=== PATIENT | female | born 1995 | race Caucasian/White ===

== ENCOUNTER 2019-06-22 02:52 | Emergency (ER) | payer BC, OTHER ==
[~2019-06-22] VITALS: Ht 154 cm; Wt 53.7 kg
--- OUTSIDE RECORDS SUMMARY | 2019-06-22 03:14 | XMS REPORT ---
Author Author Laury Buckley Doctor Organization [facility] Address Unknown Phone Unavailable Care Team Providers Care Aerospace Technician Name Role Phone Migration, Doctor Unavailable Unavailable PROBLEMS Type Condition ICD9-CM Code XCB79-QC Code Onset Dates Condition S tatus SNOMED Code Problem Opioid abuse F11.10 Active 0122342 Problem Anxiety F41.9 Active 02207645 Problem Arthritis M19.90 Active 8189340 ALLERGIES No Information ENCOUNTERS Encounter Location Date Diagnosis [address] [place] [address] Apr, [address] [place] [address] Mar, [address] [place] [address] Mar, Encounter for supervision of normal first , second trimester Z34.02 [address] [place] [address] 14 Mar, 2019 Encounter for supervision of normal first , second trimester Z34.[address] [place] [address] Feb, Encounter for supervision of normal first in first trimester Z34.[address] [place] [address] Jan, Encounter for supervision of normal first , first trimester Z34.[address] [place] [address] Jan, [address] [place] [address] Dec, Encounter for supervision of normal first in first trimester Z34.01 [facility] [address] [place] [address] Nov, Encounter for immunization Z [address] [place] [address] Apr, Encounter for Depo-Provera c ontraception Z30.42 [place] [address] [place] [id number] [place] [address] Apr, [place] [address] [address] Mar, Anxiety F41.9 and Opioid abuse F11.10 [place] [address] [address] Apr, [address] [address] Apr, Arthritis M19.90 and Other fatigue R53.[address] [address] 08 Mar, 2017 Mid-back pain, acute M54.9 [place] [address] [address] 07 Mar, 2017 Mid-back pain, acute M54.9 Mary KateKING [address] [place] [address] Aug, 15 Strain of muscle, fascia and tendon of lower back, initial encounter 846.9 and [facility] [address] [place] [address] Jul, 15 Strain of muscle, fascia and tendon of lower back, initial encounter 846.9 [place] [address] [address] June, [address] [address] June, [place] [address] [address] Jul, IMMUNIZATIONS No Known Immunizations SOCIAL HISTORY Never Assessed REASON FOR VISIT PLAN OF CARE VITAL SIGNS Height 61 in 2013-07-04 Weight 96 lbs 2013-07-04 Temperature 97.5 degrees Fahrenheit 2013-07-04 Heart Rate 72 bpm 2013-07-04 Respiratory Rate 16 2013-07-04 Blood pressure systolic 107 mmHg 2013-07-04 Blood pressure diastolic 60 mmHg 2013-07-04 MEDICATIONS Unknown Medications RESULTS No Results PROCEDURES Procedure Date Ordered Result Body Site VISUAL ACUITY SCREEN July 04, 2013 INSTRUCTIONS MEDICATIONS ADMINISTERED No Known Medications MEDICAL (GENERAL) HISTORY Type Description Date Medical History Other general medical examination for ad ministrative purposes Medical History Strain of muscle, fascia and tendon of lower back, initial encounter Surgical History No Surgical history information
--- OUTSIDE RECORDS SUMMARY | 2019-06-22 03:14 | XMS REPORT ---
Author Author Laury BOYCE Organization [facility] Address [address] [place] [address] Care Team Providers Care Prototype Fabricator Name Role Phone AUSTENGEORGETAMICA Unavailable PROBLEMS Type Condition ICD9-CM Code [id number] Code Onset Dates Condition S tatus SNOMED Code Problem Arthritis M19.90 Active 4344777 ALLERGIES No Information ENCOUNTERS Encounter Location Date Diagnosis [place] [address] [facility] [id number] [address] [place] [address] Apr, [place] [address] [place] [id number] [address] [place] [address] Apr, Arthritis M19.90 and Other f atigue R53.83 [place] [address] [facility] [id number] [address] [place] [address] Mar, Mid-back pain, acute M54.9 [place] [address] [facility] [id number] [address] [place] [address] Mar, Mid-back pain, acute M54.9 [facility] [address] [facility] [address] [id number] [place], [place] [phone] Aug, Strain of muscle, fascia and tendon of lower back, initial encounter 846.9 and Encounter related to worker's compensation claim V70.3 [facility] [address] [facility] [address] [id number] [place], [place] [id number] 30 Jul, 2014 Strain of muscle, fascia and tendon of lower back, initial encounter 846.9 [place] [address] [facility] [id number] [address] [place] [address] June, [place] [address] [facility] [id number] [address] [place] [address] June, [facility] [address] [facility] [id number] [address] [place] [address] Jul, IMMUNIZATIONS No Known Immunizations SOCIAL HISTORY Never Assessed REASON FOR VISIT Requests return call PLAN OF CARE VITAL SIGNS MEDICATIONS Medication Instructions Dosage Frequency Start Date End Date Duration S sebastian Tizanidine HCl 4 MG Orally Three times a day 1 tablet as needed 8h 10 days Active RESULTS No Results PROCEDURES No Known procedures INSTRUCTIONS MEDICATIONS ADMINISTERED No Known Medications MEDICAL (GENERAL) HISTORY Type Description Date Medical History Other general medical examination for ad ministrative purposes Medical History Strain of muscle, fascia and tendon of lower back, initial encounter
--- OUTSIDE RECORDS SUMMARY | 2019-06-22 03:14 | XMS REPORT ---
Author Author Laury BOYCE Organization [facility] [place] Address [address] [place] [address] Care Team Providers Care Foot Miter Operator Name Role Phone AUSTENGEORGETAMICA Unavailable PROBLEMS Type Condition ICD9-CM Code KUR87-CU Code Onset Dates Condition S tatus SNOMED Code Problem Arthritis M19.90 Active 1292424 ALLERGIES No Known Allergies ENCOUNTERS Encounter Location Date Diagnosis [place] [address] [facility] [id number] [address] [place] [address] Apr, [place] [address] [place] [id number] [address] [place] [address] Apr, Arthritis M19.90 and Other f atigue R53.83 [place] [address] [facility] [id number] [address] [place] [address] Mar, Mid-back pain, acute M54.9 [place] [address] [facility] [id number] [address] [place] [address] Mar, Mid-back pain, acute M54.9 [facility] [address] [facility] [address] [id number] [place], [place] [address] Aug, Strain of muscle, fascia and tendon of lower back, initial encounter 846.9 and Encounter related to worker's compensation claim V70.3 [facility] IOL [address] [facility] [address] [id number] [place], [place] [address] Jul, Strain of muscle, fascia and tendon of lower back, initial encounter 846.9 [place] [address] [facility] [id number] [address] [place] [address] June, [place] [address] [facility] [id number] [address] [place] [address] June, [facility] [place] [address] [facility] [id number] [address] [place] [address] Jul, IMMUNIZATIONS No Known Immunizations SOCIAL HISTORY Never Assessed REASON FOR VISIT Pain (acute)back, Mid back pain that started a couple months ago. States it is getting increasingly worse. Describes it as a stabbing pain that radiates down to lower back. Has tried all otc remedies. Has tried getting a massage which he lped temporarily. Also went toa chiropractor who said it was not bone relatedSergio Galindo,RN PLAN OF CARE Activity Details Follow Up prn Reason: VITAL SIGNS Height 61 in 2017-04-06 Weight 98 lbs 2017-04-06 Temperature 98.9 degrees Fahrenheit 2017-04-06 Heart Rate 88 bpm 2017-04-06 Respiratory Rate 16 2017-04-06 BMI 18.51 kg/m2 2017-04-06 Blood pressure systolic 110 mmHg 2017-04-06 Blood pressure diastolic 61 mmHg 2017-04-06 MEDICATIONS Medication Instructions Dosage Frequency Start Date End Date Duration S tatus Naproxen 500 MG Orally every 12 hrs 1 tablet as needed 12h 30 Jul, 2 015 Not-Taking Cyclobenzaprine HCl 10 mg Orally Three times a day 1 tablet as needed for back pain/muscle spasm 8h Mar, Apr, 30 day(s) Active Topiramate 50 MG Orally Once a day 1 tablet 24h Not-Taking Zolpidem Tartrate 5 MG Orally Once a day 1 tablet at bedtime 24h Not-Taking RESULTS No Results PROCEDURES No Known procedures INSTRUCTIONS MEDICATIONS ADMINISTERED No Known Medications MEDICAL (GENERAL) HISTORY Type Description Date Medical History Other general medical examination for ad ministrative purposes Medical History Strain of muscle, fascia and tendon of lower back, initial encounter
--- OUTSIDE RECORDS SUMMARY | 2019-06-22 03:14 | XMS REPORT ---
Author Author Laury MAYORGA Organization [facility] Address [address] [place] [address] Care Team Providers Care Raveler Name Role Phone NEIDA MAYORGA Unavailable PROBLEMS Type Condition ICD9-CM Code GLD50-YP Code Onset Dates Condition S tatus SNOMED Code Problem Arthritis M19.90 Active 6172966 ALLERGIES No Information ENCOUNTERS Encounter Location Date Diagnosis [place] [address] [facility] [id number] [address] [place] [address] Apr, [place] [address] [place] [id number] [address] [place] [address] Apr, Arthritis M19.90 and Other f atigue R53.83 [facility] [address] [facility] [id number] [address] [place] [address] Mar, Mid-back pain, acute M54.9 [place] [address] [facility] [id number] [address] [place] [address] Mar, Mid-back pain, acute M54.9 [facility] [address] [place] [address] Aug, Strain of muscle, fascia and tendon of lower back, initial encounter 846.9 and Encounter related to worker's compensation claim V70.3 [facility] [address] [place] [address] Jul, Strain of muscle, fascia and tendon of lower back, initial encounter 846.9 [facility] [address] [facility] [id number] [address] [place] [address] June, [facility] [address] [facility] [id number] [address] [place] [address] June, [facility] [address] [facility] [id number] [address] [place] [address] 15 Jul, 2012 IMMUNIZATIONS No Known Immunizations SOCIAL HISTORY Never Assessed REASON FOR VISIT PLAN OF CARE VITAL SIGNS MEDICATIONS Medication Instructions Dosage Frequency Start Date End Date Duration S sebastian Diclofenac Sodium 75 MG Orally Twice a day 1 tablet with food or mi lk 12h Apr, May, 30 day(s) Active RESULTS No Results PROCEDURES No Known procedures INSTRUCTIONS MEDICATIONS ADMINISTERED No Known Medications MEDICAL (GENERAL) HISTORY Type Description Date Medical History Other general medical examination for ad ministrative purposes Medical History Strain of muscle, fascia and tendon of lower back, initial encounter
--- OUTSIDE RECORDS SUMMARY | 2019-06-22 03:14 | XMS REPORT | Continuity of Care Document ---
Author Organization Unknown Address Unknown Phone Unavailable Allergies There is no data. Medications There is no data. Problems Date Dx Coded Attending Type Code Diagnosis Diagnosed By 07/04/2013 V70.3 [facility] Procedures Code Description [place] [address] VISU AL ACUITY SCREEN 07/06/2013 Results Test Result Range TSH - 05/16/17 14:19 TSH 0.29 mIU/L NRG CMP - 04/24/18 16:17 GLUCOSE 80 mg/dL 65-99 UREA NITROGEN (BUN) 12 mg/dL 7-25 CREATININE 0.77 mg/dL 0.50-1.10 eGFR NON-AFR. LIBERIAN 110 mL/min/1.73m2 > OR = 60 eGFR 127 mL/min/1.73m2 > OR = 60 BUN/CREATININE RATIO NOT APPLICABLE (calc) 6-22 SODIUM 143 mmol/L 135-146 POTASSIUM 5.1 mmol/L 3.5-5.3 CHLORIDE 108 mmol/L 98-110 CARBON DIOXIDE 30 mmol/L 20-32 CALCIUM 10.3 mg/dL 8.6-10.2 PROTEIN, TOTAL 7.4 g/dL 6.1-8.1 ALBUMIN 5.0 g/dL 3.6-5.1 GLOBULIN 2.4 g/dL (calc) 1.9-3.7 ALBUMIN/GLOBULIN RATIO 2.1 (calc) 1.0-2. 5 BILIRUBIN, TOTAL 0.3 mg/dL 0.2-1.2 ALKALINE PHOSPHATASE 55 U/L 33-115 AST 13 U/L 10-30 ALT 12 U/L 6-29 CBC - 04/24/18 16:17 WHITE BLOOD CELL COUNT 8.3 Thousand/uL 3 .8-10.8 RED BLOOD CELL COUNT 4.74 Million/uL 3.8 0-5.10 HEMOGLOBIN 14.6 g/dL 11.7-15.5 HEMATOCRIT 42.2 % 35.0-45.0 MCV 89.0 fL 80.0-100.0 MCH 30.8 pg 27.0-33.0 MCHC 34.6 g/dL 32.0-36.0 RDW 12.5 % 11.0-15.0 PLATELET COUNT 415 Thousand/uL 140-400 MPV 9.3 fL 7.5-12.5 ABSOLUTE NEUTROPHILS 3843 cells/uL 1500- 7800 ABSOLUTE LYMPHOCYTES 3519 cells/uL 850-3 900 ABSOLUTE MONOCYTES 780 cells/uL 200-950 ABSOLUTE EOSINOPHILS 50 cells/uL 15-500 ABSOLUTE BASOPHILS 108 cells/uL 0-200 NEUTROPHILS 46.3 % NRG LYMPHOCYTES 42.4 % NRG MONOCYTES 9.4 % NRG EOSINOPHILS 0.6 % NRG BASOPHILS 1.3 % NRG TSH - 04/24/18 16:17 TSH 0.75 mIU/L NRG SUREPATH PAP RFX HPV mRNA E6/E7 - 10:17 CLINICAL INFORMATION: NRG LMP: NRG PREV. PAP: NRG PREV. BX: NRG SOURCE: Cervix NRG STATEMENT OF ADEQUACY: NRG INTERPRETATION/RESULT: NRG PICK PULLING MACHINE TENDER: NRG GENERAL CATEGORIZATION: NRG COMMENT: NRG PATHOLOGIST: NRG COMMENT NRG HEP B SURFACE ANTIGEN - 01/09/19 12:10 HEPATITIS B SURFACE ANTIGEN NON-REACTIVE NON-REACTIVE HCG, QUANTITATIVE - 01/09/19 12:10 [place] [address] mIU/mL NRG RUBELLA IMMUNE STATUS - 01/09/19 12:10 RUBELLA ANTIBODY (IGG) 1.75 index NRG CULTURE, URINE - 06/01/19 15:13 CULTURE, URINE, ROUTINE SEE NOTE NRG GLUCOSE TEE 1 HOUR - 06/07/19 11:27 GLUCOSE, POSTPRANDIAL/ 1 HOUR 176 mg/dL See Note: CBC - 06/07/19 11:27 WHITE BLOOD CELL COUNT 8.8 Thousand/uL 3 .8-10.8 RED BLOOD CELL COUNT 3.95 Million/uL 3.8 0-5.10 HEMOGLOBIN 12.6 g/dL 11.7-15.5 HEMATOCRIT 37.8 % 35.0-45.0 MCV 95.7 fL 80.0-100.0 MCH 31.9 pg 27.0-33.0 MCHC 33.3 g/dL 32.0-36.0 RDW 12.5 % 11.0-15.0 PLATELET COUNT 259 Thousand/uL 140-400 MPV 10.5 fL 7.5-12.5 ABSOLUTE NEUTROPHILS 6635 cells/uL 1500- 7800 ABSOLUTE LYMPHOCYTES 1522 cells/uL 850-3 900 ABSOLUTE MONOCYTES 581 cells/uL 200-950 ABSOLUTE EOSINOPHILS 18 cells/uL 15-500 ABSOLUTE BASOPHILS 44 cells/uL 0-200 NEUTROPHILS 75.4 % NRG LYMPHOCYTES 17.3 % NRG MONOCYTES 6.6 % NRG EOSINOPHILS 0.2 % NRG BASOPHILS 0.5 % NRG SYPHILIS (RPR W/ REFLEX CONFIRMATION) - 06/07/19 11:27 RPR (DX) W/REFL TITER AND CONFIRMATORY TESTING NON-REACTIVE NON-REACTIVE GLUCOSE TEE 3 HOUR - 06/12/19 12:56 TIME 1 FASTING NRG SPECIMEN 1 77 mg/dL 65-99 TIME 2 1 HR NRG SPECIMEN 2 153 mg/dL NRG TIME 3 2 HR NRG SPECIMEN 3 133 mg/dL NRG TIME 4 3 HR NRG SPECIMEN 4 98 mg/dL NRG COMMENT NRG Encounters ACCT No. Visit Date/Time Discharge Status Pt. Type Provider Facility Loc./Unit Complaint [id number] 07/04/2013 09:12:00 07/04/2013 23:59: 59 CLS Outpatient [id number] 08/12/2012 20:06:33 Document Registration [id number] 06/01/2019 14:20:00 06/01/2019 23:59:5 9 CLS Outpatient JONI CHAMBERS, DHAVAL Damon [facility] [id number] 06/12/2019 09:30:00 Document Registration [id number] 06/07/2019 10:00:00 Document Registration [id number] 06/01/2019 14:20:00 Document Registration [id number] 01/09/2019 10:00:00 Document Registration [id number] 04/24/2018 14:00:00 Document Registration [id number] 05/16/2017 14:00:00 Document Registration
--- OUTSIDE RECORDS SUMMARY | 2019-06-22 03:14 | XMS REPORT ---
Author Author Laury MAYORGA Organization [facility] Address [address] [place] [address] Care Team Providers Care Nba Player Name Role Phone NEIDA MAYORGA Unavailable PROBLEMS Type Condition ICD9-CM Code KNY68-UW Code Onset Dates Condition S tatus SNOMED Code Problem Arthritis M19.90 Active 6171692 ALLERGIES No Known Allergies ENCOUNTERS Encounter Location Date Diagnosis [place] [address] [address] [facility] [id number] [address] [place] [address] Apr, [place] [address] [address] [place] [id number] [address] [place] [address] Apr, Arthritis M19.90 and Other f atigue R53.83 [facility] [address] [facility] [id number] [address] [place] [address] Mar, Mid-back pain, acute M54.9 [facility] [address] [facility] [id number] [address] [place] [address] Mar, Mid-back pain, acute M54.9 [facility] [address] [place] [address] Aug, Strain of muscle, fascia and tendon of lower back, initial encounter 846.9 and Encounter related to worker's compensation claim V70.3 [facility] [address] [place] [address] Jul, Strain of muscle, fascia and tendon of lower back, initial encounter 846.9 [facility] [address] [facility] [id number] [address] [place] [address] June, [facility] [address] [facility] [id number] [address] [place] [address] June, [facility] [address] [facility] [id number] [facility] [place] [address] Jul, IMMUNIZATIONS No Known Immunizations SOCIAL HISTORY Never Assessed REASON FOR VISIT swollen hands x 2 weeks.Swollen in the mornings and it is painful, at around 2 p m the swelling subsides and about 8 pm it starts to come back. The pain does not go away when swelling is lessened. Cooper PLAN OF CARE Activity Details Follow Up Will call after lab Reason: VITAL SIGNS Height 61 in 2017-05-16 Weight 101.7 lbs 2017-05-16 Temperature 98.2 degrees Fahrenheit 2017-05-16 Heart Rate 92 bpm 2017-05-16 Respiratory Rate 18 2017-05-16 BMI 19.21 kg/m2 2017-05-16 Blood pressure systolic 112 mmHg 2017-05-16 Blood pressure diastolic 78 mmHg 2017-05-16 MEDICATIONS Medication Instructions Dosage Frequency Start Date End Date Duration S tatus Topiramate 50 MG Orally Once a day 1 tablet 24h Not-Taking Tizanidine HCl 4 MG Orally Three times a day 1 tablet as needed 8h 10 days Not-Taking Naproxen 500 MG Orally every 12 hrs 1 tablet as needed 12h 30 Jorge, 2 015 Not-Taking Zolpidem Tartrate 5 MG Orally Once a day 1 tablet at bedtime 24h Not-Taking RESULTS No Results PROCEDURES Procedure Date Ordered Result Body Site C-REACTIVE PROTEIN May 16, 2017 COMPLETE CBC W/AUTO DIFF WBC May 16, 2017 VENIPUNCT, ROUTINE* May 16, 2017 ASSAY THYROID STIM HORMONE May 16, 2017 INSTRUCTIONS MEDICATIONS ADMINISTERED No Known Medications MEDICAL (GENERAL) HISTORY Type Description Date Medical History Other general medical examination for ad ministrative purposes Medical History Strain of muscle, fascia and tendon of lower back, initial encounter
[2019-06-22] MEDS ORDERED: ORPHENADRINE 60 MG/2 ML (NORFLEX) AMP IM ONE (03:15)
[2019-06-22] MEDS ORDERED: ORPHENADRINE 60 MG/2 ML (NORFLEX) AMP ONE (03:16)
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
[2019-06-22 03:43] VITALS: BP 121/67
--- NOTE | 2019-06-22 07:15 | Diagnostic Imaging Report ---
INDICATION: Trauma. FINDINGS: The nasal bone is intact. No fracture. IMPRESSION: Intact nasal bone. Dictated by: Dictated on workstation # [id number]
== END 2019-06-22 03:44 | disposition home or self-care (01) ==
LOC: ER FS 02:56
DX: O9A.212 Injury, poisoning and certain other consequences of external causes complicating pregnancy, second trimester (principal); S00.33XA Contusion of nose, initial encounter; O99.89 Other specified diseases and conditions complicating pregnancy, childbirth and the puerperium; M54.5 Low back pain; Z3A.23 23 weeks gestation of pregnancy; Z88.6 Allergy status to analgesic agent; Y04.8XXA Assault by other bodily force, initial encounter
CPT/HCPCS: 70160

== ENCOUNTER 2019-08-22 10:32 | Emergency (ER) | payer BC ==
--- NOTE | 2019-08-22 11:05 | ED Cough/URI ---
General Chief Complaint: Cough/Cold/Flu Symptoms Stated Complaint: COUGH; N/V; RUNNY NOSE; HEADACHE Nursing Triage Note: Patient reports cough for 3 days, runny nose started yesterday. Patient states she is 37 weeks . States she went to an appointment with her [employer]ACQU[employer] today and he instructed her to come to the ED for COVID-19 testing. Patient denies fever or shortness of breath. Sepsis Screen: No Definite Risk History of Present Illness Date Seen by Provider: Aug 22, 2019 Time Seen by Provider: 10:55 Initial Comments 37 week female presents with cough and runny nose. She's had a cough for about 3 days with a little bit of a runny nose that started yesterday with some mild sore throat. Patient denies any fevers chills shortness of breath nausea or vomiting. Patient went to her OB appointment and was instructed that she had to come to the ED for COVID testing prior to being seen. Patient feels like it's more allergies and COVID but is here because she was requested to come here by her [employer]. Allergies and Home Medications Allergies Coded Allergies: aspirin (Verified Allergy, Unknown, 06/22/19) Patient Home Medication List Home Medication List Reviewed: Yes Review of Systems Review of Systems Constitutional: No chills, No fever EENTM: see HPI, other (rhinitis) Respiratory: cough; No dyspnea on exertion, No short of breath Gastrointestinal: No abdominal pain, No nausea, No vomiting Genitourinary: No dysuria, No hematuria Musculoskeletal: no symptoms reported Skin: no symptoms reported Psychiatric/Neurological: No Symptoms Reported Hematologic/Lymphatic: No Symptoms Reported Past Kewhjmc-Htcdkb-Podjwf Hx Past Med/Social Hx: Reviewed Nursing Past Med/Soc Hx Patient Social History Alcohol Use: Denies Use Recreational Drug Use: No Smoking Status: Never a Smoker 2nd Hand Smoke Exposure: No Recent Foreign Travel: No Contact w/Someone Who Travel: No Recent Infectious Disease Expo: No Recent Hopitalizations: No Physical Abuse: No Sexual Abuse: No Mistreated: No Fear: No Seasonal Allergies Seasonal Allergies: No Past Medical History Surgeries: No Respiratory: No Cardiac: No Neurological: No Genitourinary: No Gastrointestinal: No Musculoskeletal: No Endocrine: No HEENT: No Cancer: No Psychosocial: No Integumentary: No Blood Disorders: No Physical Exam Vital Signs - First Documented 08/22/19 10:50 Temp 36.3 Pulse 105 Resp 16 B/P (MAP) 132/80 (97) Pulse Ox 99 O2 Delivery Room Air Capillary Refill : Less Than 3 Seconds Height: '" Weight: lbs. oz. 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 as tested, no motor/sensory deficits, oriented x 3 Skin: normal color, warm/dry Progress/Results/Core Measures Suspected Sepsis Recent Fever Within 48 Hours: No Infection Criteria Present: Suspected New Infection New/Unexplained Altered Menta: No Sepsis Screen: No Definite Risk SIRS Temperature: Pulse: 105 Respiratory Rate: 16 Laboratory Tests 08/22/19 11:00: White Blood Count 8.6 Blood Pressure 132 /80 Mean: 97 Laboratory Tests 08/22/19 11:00: Creatinine 0.49L, Platelet Count 216, Total Bilirubin 0.3 Results/Orders Lab Results Laboratory Tests Test 08/22/19 11:00 Range/Units White Blood Count 8.6 4.3-11.0 10^3/uL Red Blood Count 3.80 L 4.35-5.85 10^6/uL Hemoglobin 12.3 11.5-16.0 G/DL Hematocrit 35 35-52 % Mean Corpuscular Volume 93 80-99 FL Mean Corpuscular Hemoglobin 32 25-34 PG Mean Corpuscular Hemoglobin Concent 35 32-36 G/DL Red Cell Distribution Width 13.2 10.0-14.5 % Platelet Count 216 130-400 10^3/uL Mean Platelet Volume 10.5 H 7.4-10.4 FL Neutrophils (%) (Auto) 76 H 42-75 % Lymphocytes (%) (Auto) 15 12-44 % Monocytes (%) (Auto) 8 0-12 % Eosinophils (%) (Auto) 1 0-10 % Basophils (%) (Auto) 1 0-10 % Neutrophils # (Auto) 6.5 1.8-7.8 X 10^3 Lymphocytes # (Auto) 1.3 1.0-4.0 X 10^3 Monocytes # (Auto) 0.7 0.0-1.0 X 10^3 Eosinophils # (Auto) 0.1 0.0-0.3 10^3/uL Basophils # (Auto) 0.0 0.0-0.1 10^3/uL Sodium Level 140 135-145 MMOL/L Potassium Level 3.3 L 3.6-5.0 MMOL/L Chloride Level 106 98-107 MMOL/L Carbon Dioxide Level 22 21-32 MMOL/L Anion Gap 12 5-14 MMOL/L Blood Urea Nitrogen 3 L 7-18 MG/DL Creatinine 0.49 L 0.60-1.30 MG/DL Estimat Glomerular Filtration Rate > 60 BUN/Creatinine Ratio 6 Glucose Level 94 70-105 MG/DL Calcium Level 8.9 8.5-10.1 MG/DL Corrected Calcium 9.5 8.5-10.1 MG/DL Total Bilirubin 0.3 0.1-1.0 MG/DL Aspartate Amino Transf (AST/SGOT) 27 5-34 U/L Alanine Aminotransferase (ALT/SGPT) 21 0-55 U/L Alkaline Phosphatase 138 H 40-136 U/L Total Protein 5.9 L 6.4-8.2 GM/DL Albumin 3.3 3.2-4.5 GM/DL My Orders Orders - EDIS HYMAN DO Coronavirus Sars-Cov-2 So 2019 (08/22/19 11:05) Covid-19 Suspect Update (08/22/19 11:05) Cbc With Automated Diff (08/22/19 11:07) Comprehensive Metabolic Panel (08/22/19 11:07) Vital Signs/I&O 08/22/19 08/22/19 08/22/19 10:50 10:54 12:15 Temp 36.3 36.7 Pulse 105 102 Resp 16 16 B/P (MAP) 132/80 (97) 116/67 Pulse Ox 99 98 O2 Delivery Room Air Room Air Room Air Capillary Refill : Less Than 3 Seconds Blood Pressure Mean: 97 Departure Impression Primary Impression: Cough Disposition: 01 HOME, SELF-CARE Condition: Stable Departure-Patient Inst. Referrals: IRVING SUÁREZ DO (PCP/Family) Primary Care Physician Patient Instructions: COVID19, Coronavirus Disease 2019 (COVID-19) and , Cough, Adult (DC) Add. Discharge Instructions: Please follow-up for your results. All discharge instructions reviewed with patient and/or family. Voiced understanding. EDIS HYMAN DO Aug 22, 2019 11:05
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
[2019-08-22 11:21] LABS: BASOPHILS % (AUTO) 1 % (0-10); EOSINOPHILS % (AUTO) 1 % (0-10); HEMATOCRIT 35 % (35-52); HEMOGLOBIN 12.3 G/DL (11.5-16.0); LYMPHOCYTES # (AUTO) 1.3 X 10^3 (1.0-4.0); LYMPHOCYTES % (AUTO) 15 % (12-44); MEAN CORPUSCULAR HEMOGLOBIN 32 PG (25-34); MEAN CORPUSCULAR HGB CONC 35 G/DL (32-36); MEAN CORPUSCULAR VOLUME 93 FL (80-99); MEAN PLATELET VOLUME 10.5 FL (7.4-10.4); MONOCYTES # (AUTO) 0.7 X 10^3 (0.0-1.0); MONOCYTES % (AUTO) 8 % (0-12); NEUTROPHILS # (AUTO) 6.5 X 10^3 (1.8-7.8); NEUTROPHILS % (AUTO) 76 % (42-75); PLATELET COUNT 216 10^3/uL (130-400); RED CELL DISTRIBUTION WIDTH 13.2 % (10.0-14.5); WHITE BLOOD COUNT 8.6 10^3/uL (4.3-11.0)
[2019-08-22 11:22] LABS: EOSINOPHILS # (AUTO) 0.1 10^3/uL (0.0-0.3)
[2019-08-22 11:49] LABS: BUN/CREATININE RATIO 6; CARBON DIOXIDE 22 MMOL/L (21-32); CHLORIDE 106 MMOL/L (98-107); CREATININE SERUM 0.49 MG/DL (0.60-1.30); GFR ESTIMATED > 60; POTASSIUM 3.3 MMOL/L (3.6-5.0); SODIUM 140 MMOL/L (135-145)
[2019-08-22 11:50] LABS: ALANINE AMINOTRANSFERASE 21 U/L (0-55); ALBUMIN 3.3 GM/DL (3.2-4.5); ALKALINE PHOSPHATASE 138 U/L (40-136); BILIRUBIN,TOTAL 0.3 MG/DL (0.1-1.0); CALCIUM 8.9 MG/DL (8.5-10.1); GLUCOSE 94 MG/DL (70-105); TOTAL PROTEIN 5.9 GM/DL (6.4-8.2)
[2019-08-22 12:15] VITALS: BP 116/67
== END 2019-08-22 12:19 | disposition home or self-care (01) ==
LOC: EDUNIT# 10:32 → ER FS 10:34
DX: O99.513 Diseases of the respiratory system complicating pregnancy, third trimester (principal); R05 Cough; Z3A.37 37 weeks gestation of pregnancy; Z88.6 Allergy status to analgesic agent; Z20.828 Contact with and (suspected) exposure to other viral communicable diseases
CPT/HCPCS: 36415; 80053; 85025; 99283; U0002; 87635

== ENCOUNTER → 2020-06-06 | Outpatient (CLI) | payer MEDICAID ==
--- NOTE | 2020-06-06 11:49 | Diagnostic Imaging Report ---
CLINICAL HISTORY: Fall. Sacral pain. COMPARISON: None. TECHNIQUE: 3 views of the sacrum and coccyx. FINDINGS: There is no acute fracture or dislocation of the sacrum and coccyx. Alignment is anatomic. The surrounding soft tissues are unremarkable. IMPRESSION: 1. No acute fracture or dislocation in the sacrum and coccyx. Dictated by: Dictated on workstation # [id number]
== END ==
LOC: RAD FS 11:08
PROVIDERS: ATTEND Nurse Practitioner Family
DX: M53.3 Sacrococcygeal disorders, not elsewhere classified (principal); R26.9 Unspecified abnormalities of gait and mobility
CPT/HCPCS: 72220